=== PATIENT | female | born 1960 | race Caucasian/White ===

== ENCOUNTER 2023-01-01 18:03 | Emergency (ER) | payer OTHER, SELFPAY ==
--- NOTE | 2023-01-01 18:21 | ED.SKABFB ---
HPI - Skin/Abscess/Foreign Bdy General Chief complaint: Skin/Abscess/Foreign Body Stated complaint: Bruise Rt Arm Time Seen by Provider: 01/01/23 18:21 Source: patient Mode of arrival: ambulatory Limitations: no limitations History of Present Illness HPI narrative: 62 yo F presents with bruise to R forearm. Woke up with it today. Unsure of injury. 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 Pt is on blood thinner. Thinks it is bug bite. Pain 2/10. no itching. All systems reviewed and negative except as noted above. Related Data Home Medications Medication Instructions Recorded Confirmed aspirin 81 mg chewable tablet 81 mg PO DAILY 01/01/23 01/01/23 atorvastatin 80 mg tablet 80 mg PO DAILY 01/01/23 01/01/23 clopidogrel 75 mg tablet 75 mg PO DAILY 01/01/23 01/01/23 desvenlafaxine succinate 50 mg 50 mg PO DAILY 01/01/23 01/01/23 tablet,extended release 24 hr estradiol 0.01% (0.1 mg/gram) 1 applic vaginal WEEKLY 01/01/23 01/01/23 vaginal cream famotidine 40 mg tablet 40 mg PO DAILY 01/01/23 01/01/23 isosorbide dinitrate 10 mg tablet 10 mg PO DAILY 01/01/23 01/01/23 lisinopril 5 mg tablet 5 mg PO DAILY 01/01/23 01/01/23 nitrofurantoin macrocrystal 100 mg 100 mg PO DAILY 01/01/23 01/01/23 capsule pantoprazole 40 mg tablet,delayed 40 mg PO DAILY 01/01/23 01/01/23 release vibegron 75 mg tablet (Gemtesa) 75 mg PO DAILY 01/01/23 01/01/23 Allergies Allergy/AdvReac Type Severity Reaction Status Date / Time No Known Allergies Allergy Verified 01/01/23 18:08 Review of Systems Review of Systems: CONSTITUTIONAL: Denies fever, chills, or sweats. EYES: Denies visual changes, redness, or discharge. ENT: Denies rhinorrhea, congestion, sore throat, or otalgia. CARDIOVASCULAR: Denies chest pain, palpitations, or edema. RESPIRATORY: Denies cough or dyspnea. GASTROINTESTINAL: Denies abdominal pain, nausea, vomiting, or diarrhea. GENITOURINARY: Denies dysuria or hematuria. SKIN: Denies rash or itching. reports bruise to R forearm. MUSCULOSKELETAL: Denies back pain, joint pain, or myalgia. NEUROLOGIC: Denies headache, numbness, or weakness. PSYCHIATRIC: Denies anxiety or depression. All other systems reviewed are negative, except as documented in HPI. PMFSH Comments At time of signature, agree with nursing past medical, surgical, social and family history. There is no relevant family history pertinent to the presenting complaint. Exam Narrative: GENERAL: This is a well-nourished, well-developed patient, in no apparent distress. HEAD: normocephalic, atraumatic. EYES: PERRL. Sclera clear/white. Vision is grossly intact. EARS: External ears normal NOSE: External nose normal NECK: Neck supple, non-tender without lymphadenopathy, masses or thyromegaly. CARDIOVASCULAR: Regular rate and rhythm without murmurs, gallops, or rubs. RESPIRATORY: Clear to auscultation. Breath sounds equal bilaterally. No wheezes, rales, or rhonchi. SKIN: warm, Dry, intact with no suspicious lesions or rash, good texture and turgor. 6x7cm contusion to posterior aspect R forearm. no warmth, redness or drainage. nothing suspicious concerning for insect bite. NEURO: awake, alert, and oriented to person, place and time. There were no obvious focal neurologic abnormalities. EXTREMITIES: No joint tenderness, effusion, or edema noted. Course Course Level of Care: Express Care Visit Vital Signs Vital signs: reviewed MDM - Skin/Abscess/Foreign Bdy MDM Narrative Medical decision making narrative: Patient is aware of diagnosis, understands and agrees to treatment plan. Anticipatory guidance given. Patient agrees to follow-up as directed and is aware of reasons to seek care at the emergency department. Portions of this record may have been created with voice recognition software Discharge Plan Discharge Clinical Impression: Contusion of forearm, right Qualifiers: Encounter type: initial encounte
[2023-01-01 18:25] VITALS: BP 112/75; PULSE 81; RESP 16; TEMP 36.9; O2SAT 95
== END 2023-01-01 18:39 | disposition home or self-care (01) ==
PROVIDERS: Emergency Provider Nurse Practitioner Family
DX: S50.11XA Contusion of right forearm, initial encounter (principal); X58.XXXA Exposure to other specified factors, initial encounter; Z79.82 Long term (current) use of aspirin; E78.00 Pure hypercholesterolemia, unspecified; I10 Essential (primary) hypertension; I25.2 Old myocardial infarction; K21.9 Gastro-esophageal reflux disease without esophagitis
CPT/HCPCS: 99212; G0463